=== PATIENT | female | born 1990 | race Caucasian/White ===

== ENCOUNTER 2016-08-09 01:39 | Emergency (ER) | payer BC ==
[~2016-08-09] VITALS: Ht 177.8 cm; Wt 85.0 kg
[2016-08-09 01:47] VITALS: Ht 177.8 cm; Wt 85.0 kg
[2016-08-09] MEDS ORDERED: NPH10OT RIGHT EAR (06:09)
[2016-08-09] MEDS ORDERED: AZIT250T94 PO (06:09)
[2016-08-09 06:17] VITALS: BP 111/76; PULSE 90; RESP 16
--- NOTE | 2016-08-09 08:19 | ERD ---
ER Documentation Chief Complaint Date/Time DATE: 08/09/16 TIME: 08:18 Chief Complaint right ear pain x 1 day HPI Patient is a 26-year-old female with previous ear infections and bipolar disorder who presents with ear infection. She says that she started with pressure yesterday and has 7 out of 10 pain. She said that it was pulsating. It is right-sided. She had a fever of 100 as well. She tried Mucinex DM and Tylenol. She has an allergy to penicillin and usually gets Zithromax for her ear infections. She does not currently have a primary doctor. ROS All systems reviewed and are negative except as per history of present illness. Medications Home Meds Active Scripts Neomycin/Polymyxin/Hydrocort* (Cortisporin* Otic) 10 Ml Susp, 4 DROP RIGHT EAR QID for 7 Days, EA Prov:ELLI LEWIS MD 08/09/16 Azithromycin* (Zithromax*) 250 Mg Tablet, 250 MG PO .ZPACK DIRECTED, #6 TAB TAKE 500 MG (2 TABS) THE FIRST DAY THEN 250 MG (1 TAB) DAYS 2-5 Prov:ELLI LEWIS MD 08/09/16 Allergies Allergies: Coded Allergies: Penicillins (Verified Allergy, Unknown, 08/09/16) PMhx/Soc History of Surgery: Yes (appendectomy) Anesthesia Reaction: No Hx Neurological Disorder: No Hx Respiratory Disorders: No Hx Cardiac Disorders: No Hx Miscellaneous Medical Probl: No Hx Alcohol Use: No Hx Substance Use: No Hx Tobacco Use: No Smoking Status: Never smoker FmHx Family History: diabetes Physical Exam Vitals Vital Signs Date Time Temp Pulse Resp B/P Pulse Ox O2 Delivery O2 Flow Rate FiO2 08/09/16 06:17 90 16 111/76 97 Room Air 08/09/16 01:47 97.8 99 20 129/84 100 Physical Exam Const: No acute distress Head: Atraumatic Eyes: Normal Conjunctiva ENT: Bulging right tympanic membrane without erythema Neck: Full range of motion..~ No meningismus. Resp: Clear to auscultation bilaterally Cardio: Regular rate and rhythm, no murmurs Abd: Soft, non tender, non distended. Normal bowel sounds Skin: No petechiae or rashes Back: No midline or flank tenderness Ext: No cyanosis, or edema Neur: Awake and alert Psych: Normal Mood and Affect Procedures/MDM Patient is a 26-year-old female presents with what appears to be a right-sided ear infection. She definitely has fluid and possibly pus behind the right ear. I will treat her with 5 days of Zithromax. She can follow-up with a primary doctor the local clinics that she does not currently have a primary doctor. She is otherwise well-appearing and I believe outpatient management is appropriate. She can return sooner for any worsening symptoms. Departure Diagnosis: Primary Impression: Otitis media Otitis media type: unspecified Laterality: right Chronicity: unspecified Qualified Code: H66.91 - Right otitis media, unspecified chronicity, unspecified otitis media type Condition: Fair Patient Instructions: Otitis Media, Abx Tx (Adult) Referrals: [facility] YOU HAVE RECEIVED A MEDICAL SCREENING EXAM AND THE RESULTS INDICATE THAT YOU DO NOT HAVE A CONDITION THAT REQUIRES URGENT TREATMENT IN THE EMERGENCY DEPARTMENT. FURTHER EVALUATION AND TREATMENT OF YOUR CONDITION CAN WAIT UNTIL YOU ARE SEEN IN YOUR DOCTORS OFFICE WITHIN THE NEXT 1-2 DAYS. IT IS YOUR RESPONSIBILITY TO MAKE AN APPOINTMENT FOR FOLOW-UP CARE. IF YOU HAVE A PRIMARY DOCTOR --you should call your primary doctor and schedule an appointment IF YOU DO NOT HAVE A PRIMARY DOCTOR YOU CAN CALL OUR PHYSICIAN REFERRAL HOTLINE AT IF YOU CAN NOT AFFORD TO SEE A PHYSICIAN YOU CAN CHOSE FROM THE FOLLOWING [facility] [address] [facility]. [facility] [address] [facility] [facility] [address] [facility] [facility] [address] [facility] [facility] [address] [facility]. [facility]. [address] Additional Instructions: Call your primary care doctor TOMORROW for an appointment during the next 1-2 days.See the doctor sooner or return here if your condition worsens before your appointment time. ELLI LEWIS MD Aug 09, 2016 08:19
== END 2016-08-09 06:18 | disposition home or self-care (01) ==
LOC: FTE 01:39
DX: H66.91 Otitis media, unspecified, right ear (principal)
CPT/HCPCS: 99283

== ENCOUNTER 2016-10-21 04:33 | Emergency (ER) | payer BC ==
[~2016-10-21] VITALS: Ht 167.6 cm; Wt 85.0 kg
[~2016-10-21 04:33] MED LIST: AZIT250T94 PO; NPH10OT RIGHT EAR
[2016-10-21 04:37] VITALS: Ht 167.6 cm; Wt 85.0 kg
[2016-10-21] MEDS ORDERED: ONDANSETRON (ODT) 4 MG TAB ODT STA (04:50)
[2016-10-21 04:57] LABS: URINE BLOOD (Dip) POC 2+ (NEGATIVE)
[2016-10-21] MEDS ORDERED: IBUPROFEN 600 MG TAB PO ONE (05:00)
[2016-10-21] MEDS ORDERED: HYDROCODONE/APAP (5/325) TAB PO ONE (05:00)
[2016-10-21] MEDS ORDERED: KETOROLAC 60 MG INJ IM STA (05:01)
[2016-10-21 06:30] LABS: ADD UMIC YES; URINE BILIRUBIN (Dip) NEGATIVE (NEGATIVE); URINE BLOOD (Dip) 3+ (NEGATIVE); URINE COLOR LT. YELLOW (YELLOW); URINE GLUCOSE (Dip) NEGATIVE (NEGATIVE); URINE KETONES (Dip) NEGATIVE (NEGATIVE); URINE LEUKOCYTE ESTERASE (Dip) NEGATIVE (NEGATIVE); URINE NITRITE (Dip) NEGATIVE (NEGATIVE); URINE TOTAL PROTEIN (Dip) NEGATIVE (NEGATIVE); URINE UROBILINOGEN (Dip) 0.2 E.U./dL (0.1-1.0)
[2016-10-21 07:03] LABS: URINE RBCS 0-2 /HPF (0)
--- NOTE | 2016-10-21 07:03 | ERD ---
ER Documentation Chief Complaint Date/Time DATE: 10/21/16 TIME: 07:01 Chief Complaint Flank pain x4 days HPI Patient is a 26-year-old female who presents with sudden onset, intermittent, moderate to severe bilateral flank pain for 4 days. She reports waking up this morning with severe pain on bilateral flanks radiating to the lower abdomen. She denies fevers, leg weakness or numbness, hematuria, dysuria. She is currently menstruating and has been spotting dark blood. She denies vaginal discharge. She does report that she takes longer to urinate than usual. No increased frequency. No vomiting, diarrhea, constipation. ROS All systems reviewed and are negative except as per history of present illness. Medications Home Meds Active Scripts Acetaminophen* (Acephen*) 650 Mg Supp, 650 MG TN Q4H Y for PAIN, #30 SUPP Prov:DERIK SAVAGE MD 10/21/16 Cyclobenzaprine Hcl* (Cyclobenzaprine Hcl*) 10 Mg Tablet, 10 MG PO TID, #21 TAB Prov:DERIK SAVAGE MD 10/21/16 Neomycin/Polymyxin/Hydrocort* (Cortisporin* Otic) 10 Ml Susp, 4 DROP RIGHT EAR QID for 7 Days, EA Prov:ELLI LEWIS MD 08/09/16 Azithromycin* (Zithromax*) 250 Mg Tablet, 250 MG PO .ZPACK DIRECTED, #6 TAB TAKE 500 MG (2 TABS) THE FIRST DAY THEN 250 MG (1 TAB) DAYS 2-5 Prov:ELLI LEWIS MD 08/09/16 Allergies Allergies: Coded Allergies: Penicillins (Verified Allergy, Unknown, 08/09/16) PMhx/Soc Past medical history: Bipolar disorder, ITP, postural hypotension Past surgical history: Appendectomy Social history: Denies tobacco, alcohol or illicit drugs History of Surgery: Yes (appendectomy) Anesthesia Reaction: No Hx Neurological Disorder: No Hx Respiratory Disorders: No Hx Cardiac Disorders: No Hx Miscellaneous Medical Probl: Yes (GERD) Hx Alcohol Use: No Hx Substance Use: No Hx Tobacco Use: No Smoking Status: Never smoker FmHx Multiple family members have history of kidney stones. Family History: No coronary disease, No diabetes Physical Exam Vitals Vital Signs Date Time Temp Pulse Resp B/P Pulse Ox O2 Delivery O2 Flow Rate FiO2 10/21/16 09:40 97.0 69 18 114/71 98 Room Air 10/21/16 06:30 98.4 78 18 120/69 98 Room Air 10/21/16 04:37 98.4 82 18 122/77 98 Physical Exam Const: Alert, no acute distress Head: Atraumatic Eyes: Normal Conjunctiva, no pallor, no icterus ENT: Normal External Ears, Nose and Mouth. Moist mucous membranes Neck: Full range of motion..~ No meningismus. Resp: Clear to auscultation bilaterally, no wheezes, no rales Cardio: Regular rate and rhythm, no murmurs Abd: Soft, mild suprapubic tenderness, no guarding, no rebound, non distended. Normal bowel sounds Skin: No petechiae or rashes Back: No midline tenderness, equivocal left CVA tenderness, mild left paraspinal muscle tenderness Ext: No cyanosis, or edema Neur: Awake and alert, cranial nerves II through XII intact bilaterally, patient moves and feels 4 extremities appropriately. Psych: Normal Mood and Affect Result Diagram: 10/21/16 0740 10/21/16 0740 Results 24 hrs Laboratory Tests Test 10/21/16 04:57 10/21/16 05:00 10/21/16 07:40 Bedside Urine pH (LAB) 7.0 Bedside Urine Protein (LAB) Negative Bedside Urine Glucose (UA) Negative Bedside Urine Ketones (LAB) Negative Bedside Urine Blood 2+ Bedside Urine Nitrite (LAB) Negative Bedside Urine Leukocyte Esterase (L Negative Urine Color LT. YELLOW Urine Clarity CLEAR Urine pH 6.0 Urine Specific Epes 1.015 Urine Ketones NEGATIVE Urine Nitrite NEGATIVE Urine Bilirubin NEGATIVE Urine Urobilinogen 0.2 E.U./dL Urine Leukocyte Esterase NEGATIVE Urine Microscopic RBC 0-2/HPF Urine Microscopic WBC 2-5/HPF Urine Epithelial Cells FEW Urine Bacteria FEW Urine Mucus FEW Urine Hemoglobin 3+ Urine Glucose NEGATIVE% Urine Total Protein NEGATIVE White Blood Count 8.610^3/ul Red Blood Count 4.5510^6/ul Hemoglobin 14.9g/dl Hematocrit 42.2% Mean Corpuscular Volume 92.7fl Mean Corpuscular Hemoglobin 32.7pg Mean Corpuscular Hemoglobin Concent 35.3g/dl Red Cell Distribution Width 11.2% Platelet Count 30153^3/UL Mean Platelet Volume 8.7fl Neutrophils % 57.1% Lymphocytes % 35.3% Monocytes % 6.9% Eosinophils % 0.1% Basophils % 0.3% Nucleated Red Blood Cells % 0.0/100WBC Neutrophils # 4.910^3/ul Lymphocytes # 3.010^3/ul Monocytes # 0.610^3/ul Eosinophils # 0.010^3/ul Basophils # 0.010^3/ul Nucleated Red Blood Cells # 0.010^3/ul Sodium Level 142mmol/L Potassium Level 4.6mmol/L Chloride Level 105mmol/L Carbon Dioxide Level 26mmol/L Anion Gap 16 Blood Urea Nitrogen 11mg/dl Creatinine 0.77mg/dl Glucose Level 93mg/dl Calcium Level 9.3mg/dl Total Bilirubin 0.1mg/dl Direct Bilirubin 0.00mg/dl Indirect Bilirubin 0.1mg/dl Aspartate Amino Transf (AST/SGOT) 27IU/L Alanine Aminotransferase (ALT/SGPT) 57IU/L Alkaline Phosphatase 82IU/L Creatine Kinase 39IU/L Total Protein 7.1g/dl Albumin 3.8g/dl Globulin 3.30g/dl Albumin/Globulin Ratio 1.15 Lipase 251U/L Current Medications Medications (Trade) Dose Ordered Sig/Rahul Route PRN Reason Start Time Stop Time Status Last Admin Dose Admin Ondansetron HCl (Zofran Odt) 4 mg ONCE STAT ODT 10/21/16 04:50 10/21/16 04:51 DC 10/21/16 05:07 Ibuprofen (Motrin) 600 mg ONCE ONCE PO 10/21/16 05:00 10/21/16 05:01 DC 10/21/16 05:08 Acetaminophen/ Hydrocodone Bitart ([place] (5/325)) 1 tab ONCE ONCE PO 10/21/16 05:00 10/21/16 05:01 DC 10/21/16 05:08 Ketorolac Tromethamine (Toradol) 60 mg ONCE STAT IM 10/21/16 05:01 10/21/16 05:02 DC 10/21/16 05:07 Cyclobenzaprine HCl (Flexeril) 10 mg ONCE ONCE PO 10/21/16 08:30 10/21/16 08:31 DC 10/21/16 08:20 Tramadol HCl (Ultram) 50 mg ONCE ONCE PO 10/21/16 09:30 10/21/16 09:31 DC 10/21/16 09:39 Procedures/MDM MDM: Patient is a 26-year-old female who presents with bilateral back pain radiating to the abdomen. She has a fairly unremarkable CT scan, except for a small gallstone. There is no right upper quadrant tenderness or signs of cholecystitis. There is no evidence for UTI or kidney stone. Labs are otherwise unremarkable. Her exam is suggestive of musculoskeletal back pain. I have prescribed her Flexeril and Tylenol, and have advised her to follow-up closely with your PMD if her symptoms are not improving, and to return to the ER for fever, severe pain, vomiting or other concerns. Departure Diagnosis: Primary Impression: Musculoskeletal back pain Additional Impression: Cholelithiasis Cholelithiasis location: gallbladder Cholecystitis presence: without cholecystitis Biliary obstruction: without biliary obstruction Qualified Code : K80.20 - Calculus of gallbladder without cholecystitis without obstruction Condition: DERIK Hoover MD October 21, 2016 07:03
[2016-10-21 07:04] LABS: BACTERIA,URINE FEW; MUCUS,URINE FEW
--- NOTE | 2016-10-21 07:19 | RADRPT ---
PROCEDURE: CT ABDOMEN/PELVIS WITHOUT CONTRAST CLINICAL INDICATION: 26-year-old female with left flank pain. TECHNIQUE: The study was performed utilizing a GE Direct Flow [employer]ed VCT 64-slice CT scanner. Direct axia l sections were obtained through the abdomen and pelvis without the use of intravenous contrast mate rial. Sagittal and coronal reformations were obtained. One or more of the following dose reduction t echniques were utilized: automated exposure control, adjustment of the mA and/or kV according to pat ient's size or use of iterative reconstruction technique. The images were reviewed on a PACS workst atgoOutMap. CTD/vol = 14.1 mGy; Total Exam DLP = 835.0 mGy-cm. COMPARISON: None. FINDINGS: The lung bases are unremarkable. There is no evidence for significant pleural effusion. The liver has a normal size and contour without focal areas of abnormal density. No intrahepatic nor extrahepa tic biliary ductal dilatation is seen. The gallbladder contains a small cholesterol stones seen best on axial image 3-72 without significant wall thickening or pericholecystic fluid. The pancreas is w ithout areas of abnormal attenuation. The spleen is identified and has a normal size without abnorm al density. The adrenal glands are unremarkable. The kidneys are without abnormal density. No hydrou reteronephrosis nor nephroureterolithiasis is evident. The urinary bladder is decompressed. There is [id number] retained stool throughout the colon without gross bowel obstruction. Multiple jonny gical clips are seen within the left lower quadrant region from prior appendectomy. The uterus is a nteflexed. It pelvic free fluid. There is a contraceptive diaphragm within the distal vaginal region covering the external orifice of the cervix. The aortoiliac vessels are without aneurysmal di latation. The osseous structures are intact. IMPRESSION: 1. Gallstone. 2. No CT evidence for obstructive uropathy or renal calculi. 3. Retained stool without gross bowel obstruction. 4. Status post appendectomy. 5. Contraceptive diaphragm in place. .Faraz Herron MD, Date Time Electronically viewed and signed by .Faraz Herron MD, MD on 10/21/2016 07:18 .M/
[2016-10-21 08:13] LABS: ADD SCAN DIFF NO
[2016-10-21 08:19] LABS: BASOPHILS % 0.3 % (0.0-2.0); EOSINOPHILS % 0.1 % (0.0-7.0); HEMATOCRIT 42.2 % (37.0-47.0); HEMOGLOBIN 14.9 g/dl (12.0-16.0); LYMPHOCYTES % 35.3 % (15.0-51.0); MEAN CORPUSCULAR HEMOGLOBIN 32.7 pg (29.0-33.0); MEAN CORPUSCULAR HGB CONC 35.3 g/dl (32.0-37.0); MEAN CORPUSCULAR VOLUME 92.7 fl (82.0-101.0); MEAN PLATELET VOLUME 8.7 fl (7.4-10.4); MONOCYTE # 0.6 10^3/ul (0.3-0.9); MONOCYTES % 6.9 % (0.0-11.0); NEUTROPHIL # 4.9 10^3/ul (1.6-7.5); NEUTROPHILS % 57.1 % (39.0-77.0); PLATELET COUNT 131 10^3/UL (140-415); RED BLOOD COUNT 4.55 10^6/ul (4.20-5.40); RED CELL DISTRIBUTION WIDTH 11.2 % (11.5-14.5); WHITE BLOOD COUNT 8.6 10^3/ul (4.8-10.8)
[2016-10-21] MEDS ORDERED: CYCLOBENZAPRINE 10 MG TAB PO ONE (08:30)
[2016-10-21 08:36] LABS: ALBUMIN 3.8 g/dl (3.3-4.9)
[2016-10-21 08:37] LABS: POTASSIUM 4.6 mmol/L (3.5-5.1)
[2016-10-21 08:39] LABS: BILIRUBIN,INDIRECT 0.1 mg/dl (0-1.1); BILIRUBIN,TOTAL 0.1 mg/dl (0.2-1.3); CREATININE 0.77 mg/dl (0.44-1.00)
[2016-10-21 08:40] LABS: ALBUMIN/GLOBULIN RATIO 1.15; CALCIUM 9.3 mg/dl (8.4-10.2); TOTAL PROTEIN 7.1 g/dl (6.1-8.1)
[2016-10-21] MEDS ORDERED: TYL650R PR (08:43)
[2016-10-21] MEDS ORDERED: CYCL-319 PO (08:43)
[2016-10-21] MEDS ORDERED: traMADol 50 MG TAB PO ONE (09:30)
[2016-10-21 09:40] VITALS: BP 114/71; PULSE 69; RESP 18; TEMP 97
== END 2016-10-21 08:42 | disposition home or self-care (01) ==
LOC: E/R 04:33
DX: M54.9 Dorsalgia, unspecified (principal); K80.20 Calculus of gallbladder without cholecystitis without obstruction
CPT/HCPCS: 74176; 80053; 81001; 82550; 83690; 85025; J1885; 81003; 96372

== ENCOUNTER 2016-10-25 04:35 | Emergency (ER) | payer BC ==
[~2016-10-25] VITALS: Ht 167.6 cm; Wt 85.0 kg
[~2016-10-25 04:35] MED LIST changes: +CYCL-319 PO; +TYL650R PR
[2016-10-25 04:39] VITALS: Ht 167.6 cm; Wt 85.0 kg
--- NOTE | 2016-10-25 04:53 | ERD ---
ER Documentation Chief Complaint Date/Time DATE: 10/25/16 TIME: 04:53 Chief Complaint both flank pain, painful urination PANTERA Is a 26-year-old female who presents with gradual onset, constant, moderate throbbing pain in the right low back. She was seen in the ER 4 days ago, and at that time she had had symptoms already for 4 days. Her workup at that time revealed a small gallstone, constipation, but no evidence of renal stone or infection. Her CT scan did not reveal significant intra-abdominal pathology. She was discharged with Flexeril, and states she has been taking 2-3 times a day. She states that her pain got better, but now has gotten worse again for the last 2 days. She states that she had 2 episodes of vomiting yesterday. She denies fever. She states she has had normal bowel movements. She states that she is now having worse dysuria. She denies vaginal discharge. She has an appointment with her PMD in 4 days. ROS All systems reviewed and are negative except as per history of present illness. Medications Home Meds Reported Medications Lactobacillus Combination No.4 (Probiotic) 1 Each Capsule, PO DAILY, CAP 10/25/16 Bismuth Subsalicylate* (Pepto-Bismol*) 262 Mg/15 Ml Oral.susp, 30 ML PO, ML 10/25/16 Acetaminophen/Aspirin/Caffeine* (Excedrin*) 1 Tab Tab, 1 TAB PO, TAB 10/25/16 Bupropion Hcl* (Wellbutrin XL*) 300 Mg Tab.sr.24h, 300 MG PO DAILY, TAB.SA 10/25/16 Lurasidone Hcl (LATUDA) 120 Mg Tablet, 120 MG PO DAILY, #30 TAB 10/25/16 Levetiracetam* (Keppra*) 500 Mg Tablet, 500 MG PO DAILY, TAB 10/25/16 Discontinued Scripts Acetaminophen* (Acephen*) 650 Mg Supp, 650 MG MT Q4H Y for PAIN, #30 SUPP Prov:DERIK SAVAGE MD 10/21/16 Cyclobenzaprine Hcl* (Cyclobenzaprine Hcl*) 10 Mg Tablet, 10 MG PO TID, #21 TAB Prov:DERIK SAVAGE MD 10/21/16 Neomycin/Polymyxin/Hydrocort* (Cortisporin* Otic) 10 Ml Susp, 4 DROP RIGHT EAR QID for 7 Days, EA Prov:ELLI LEWIS MD 08/09/16 Azithromycin* (Zithromax*) 250 Mg Tablet, 250 MG PO .ZPACK DIRECTED, #6 TAB TAKE 500 MG (2 TABS) THE FIRST DAY THEN 250 MG (1 TAB) DAYS 2-5 Prov:ELLI LEWIS MD 08/09/16 Allergies Allergies: Coded Allergies: Penicillins (Unverified Allergy, Unknown, 10/25/16) PMhx/Soc Past medical history: Bipolar disorder, cholelithiasis, ITP, postural hypotension Past surgical history: Appendectomy Social history: Denies tobacco or alcohol History of Surgery: Yes (appendectomy) Anesthesia Reaction: No Hx Neurological Disorder: No Hx Respiratory Disorders: No Hx Cardiac Disorders: No Hx Miscellaneous Medical Probl: Yes (GERD) Hx Alcohol Use: No Hx Substance Use: No Hx Tobacco Use: No Smoking Status: Never smoker FmHx Family History: No coronary disease, No diabetes Physical Exam Vitals Vital Signs Date Time Temp Pulse Resp B/P Pulse Ox O2 Delivery O2 Flow Rate FiO2 10/25/16 04:39 98.4 89 20 124/80 98 Physical Exam Const: Alert, no acute distress Head: Atraumatic Eyes: Normal Conjunctiva, no pallor, no icterus ENT: Normal External Ears, Nose and Mouth. Mucous membranes moist Neck: Full range of motion..~ No meningismus. Resp: Clear to auscultation bilaterally, no wheezes, rales Cardio: Regular rate and rhythm, no murmurs Abd: Soft, non tender, no rebound, no guarding, non distended. Normal bowel sounds Skin: No petechiae or rashes Back: No midline tenderness, no CVA tenderness. Right lumbar paraspinal muscle tenderness and spasm Ext: No cyanosis, or edema Neur: Awake and alert, cranial nerves II through XII intact bilaterally, strength and sensation full in 4 extremities, normal gait Psych: Normal Mood and Affect Results 24 hrs Laboratory Tests Test 10/25/16 05:01 Bedside Urine pH (LAB) 7.0 Bedside Urine Protein (LAB) Negative Bedside Urine Glucose (UA) Negative Bedside Urine Ketones (LAB) Negative Bedside Urine Blood 2+ Bedside Urine Nitrite (LAB) Negative Bedside Urine Leukocyte Esterase (L Negative Current Medications Medications (Trade) Dose Ordered Sig/Rahul Route PRN Reason Start Time Stop Time Status Last Admin Dose Admin Acetaminophen/ Hydrocodone Bitart ([place] (5/325)) 1 tab ONCE ONCE PO 10/25/16 05:00 10/25/16 05:01 DC 10/25/16 04:59 Procedures/MDM MDM: Patient is a 26-year-old female with greater than 1 week of right lumbar paraspinal pain. She has pain that is reproducible with palpation of the paraspinal muscles. She was seen 4 days ago, and had extensive workup including CT scan that did not demonstrate significant pathology. She has been taking Flexeril, and initially had some improvement of symptoms, but now states that her pain is returning. She has a benign abdominal exam, no neurologic symptoms or deficits, and UA shows microscopic hematuria but no signs of infection. The cause of microscopic hematuria is not clear at this time. I have low suspicion for kidney stone. Her exam is consistent with muscle strain or spasm. The patient has follow-up scheduled with PMD in 4 days. Advised her to use a heating pad, and do gentle stretching. Advised on return precautions for fever, severe pain or other symptoms. Departure Diagnosis: Primary Impression: Low back pain Chronicity: unspecified Back pain laterality: right Sciatica presence: without sciatica Qualified Code: M54.5 - Right-sided low back pain without sciatica, unspecified chronicity Additional Impression: Microscopic hematuria Condition: Stable DERIK SAVAGE MD October 25, 2016 04:53
[2016-10-25 05:00] LABS: URINE BLOOD (Dip) POC 2+ (NEGATIVE)
[2016-10-25] MEDS ORDERED: HYDROCODONE/APAP (5/325) TAB PO ONE (05:00)
[2016-10-25] MEDS ORDERED: LURA120T PO (05:26)
[2016-10-25] MEDS ORDERED: LEVE-5 PO (05:26)
[2016-10-25] MEDS ORDERED: BUPR300T48 PO (05:26)
[2016-10-25] MEDS ORDERED: BISM262O23 PO (05:26)
[2016-10-25] MEDS ORDERED: EXCED PO (05:26)
[2016-10-25] MEDS ORDERED: LACT1CAP49 PO (05:26)
== END 2016-10-25 05:41 | disposition home or self-care (01) ==
LOC: E/R 04:35
DX: M54.5 Low back pain (principal); R31.29 Other microscopic hematuria
CPT/HCPCS: 81003; 99283

== ENCOUNTER 2017-01-25 03:02 | Emergency (ER) | payer BC ==
[~2017-01-25] VITALS: Ht 162.6 cm; Wt 94.5 kg
[~2017-01-25 03:02] MED LIST changes: -AZIT250T94 PO; +BISM262O23 PO; +BUPR300T48 PO; -CYCL-319 PO; +EXCED PO; +LACT1CAP49 PO; +LEVE-5 PO; +LURA120T PO; -NPH10OT RIGHT EAR; -TYL650R PR
[2017-01-25 03:07] VITALS: Ht 162.6 cm; Wt 94.5 kg
--- NOTE | 2017-01-25 03:50 | ERD ---
ER Documentation Chief Complaint Date/Time DATE: 01/25/17 TIME: 03:48 Chief Complaint chest pain on and off x1 day, diarrhea/vomiting since 6 hours ago HPI 26-year-old female who presents emergency department for chest pain that is on and off for about a day, diarrhea, vomiting that started 6 hours ago. Stated that the pain is worse on movement. Denies headache, loss of consciousness, dizziness, blurry vision, changes in vision, photophobia, facial pain, ear pain, throat pain, difficulty swallowing, neck pain, shoulder pain, cough, hemoptysis, abdominal pain, back pain, loss of appetite, hematochezia, constipation, urinary symptoms, , the possibility of being , bladder and bowel incontinences, extremity weakness, trauma/injury/falls, extremity tenderness, numbness or tingling sensation, difficulty walking, recent travel, recent exposure to illness, recent antibiotic use in the last 3 months, fever, chills. LMP: Stated that she is on NuvaRing and does not have any periods. A0. Allergy: Penicillin. Reaction is hives. Past medical history of bipolar, depression, GERD, idiopathic thrombocytopenia. Surgery: Appendectomy. Medication: Latuda, Keppra, Wellbutrin Social: Student. Denies smoking, use of alcoholic beverages, use of illegal drugs. ROS All systems reviewed and are negative except as per history of present illness. Medications Home Meds Active Scripts Cyclobenzaprine Hcl* (Cyclobenzaprine Hcl*) 10 Mg Tablet, 10 MG PO Q12 Y for muscle pain, #15 TAB Prov:PASILABAN,BRUNILDAAR F 01/25/17 Sulfamethoxazole/Trimethoprim* (Bactrim Ds* Tablet) 1 Each Tablet, 1 TAB PO DAILY, #7 TAB Prov:PASILABAN,KLAR F 01/25/17 Reported Medications Lactobacillus Combination No.4 (Probiotic) 1 Each Capsule, PO DAILY, CAP 10/25/16 Bismuth Subsalicylate* (Pepto-Bismol*) 262 Mg/15 Ml Oral.susp, 30 ML PO, ML 10/25/16 Acetaminophen/Aspirin/Caffeine* (Excedrin*) 1 Tab Tab, 1 TAB PO, TAB 10/25/16 Bupropion Hcl* (Wellbutrin XL*) 300 Mg Tab.sr.24h, 300 MG PO DAILY, TAB.SA 10/25/16 Lurasidone Hcl (LATUDA) 120 Mg Tablet, 120 MG PO DAILY, #30 TAB 10/25/16 Levetiracetam* (Keppra*) 500 Mg Tablet, 500 MG PO DAILY, TAB 10/25/16 Allergies Allergies: Coded Allergies: Penicillins (Unverified Allergy, Unknown, 10/25/16) PMhx/Soc History of Surgery: Yes (appendectomy) Anesthesia Reaction: No Hx Neurological Disorder: No Hx Respiratory Disorders: No Hx Cardiac Disorders: No Hx Miscellaneous Medical Probl: Yes (GERD) Hx Alcohol Use: No Hx Substance Use: No Hx Tobacco Use: No Physical Exam Vitals Vital Signs Date Time Temp Pulse Resp B/P Pulse Ox O2 Delivery O2 Flow Rate FiO2 01/25/17 03:07 97.4 74 20 121/80 98 Physical Exam CONSTITUTIONAL: Well-appearing; well-nourished; in no apparent distress. HEAD: Normocephalic; atraumatic. EYES: Conjunctiva clear, sclera non-icteric, EOM intact. PERRL Ears: Hearing intact. EACs clear, TMs non-bulging, non-inflamed, translucent & mobile, ossicles normal appearance, No obstructions, no erythema, no discharges Nose: No obstructions. No polyps. No external lesions. Mucosa non-inflamed. No external lesions, septum and turbinates normal. No rhinorrhea. No discharges. Frontal sinus is non-tender to palpation. Maxillary sinus is non-tender to palpation. MOUTH: Moist mucous membranes, no lesion, no obstructions, no vesicles, no thrush, patent airway Throat: Uvula in midline. Right tonsil is +1 with no erythema, no exudate. Left tonsil is +1 with no erythema, no exudate. Tolerating secretions well. Good gag reflex. Patent airway. Neck: Supple, without lesions, bruits, or adenopathy. No mass. Thyroid non- enlarged and non-tender to palpation. CHEST: Symmetrical chest. Respirations even and not labored. No retractions noted. CARDIOVASCULAR: Normal S1, S2. RRR. No murmurs, gallops. RESPIRATORY: Normal chest excursion with respiration; breath sounds clear and equal bilaterally; no wheezes, rhonchi, or rales. Breathing even and unlabored. Speaking in clear, full, and complete sentences w/ ease. ABDOMEN: Normal bowel sounds normal. Soft, round, non-distended, non-guarding, no tenderness, no rebound, no organomegaly, no masses, no pulsating abdominal mass. No hernia. No peritoneal signs. : No CVA tenderness. BACK: Symmetrical shoulder. Spine is midline without deformity, tenderness. No evidence of trauma or deformity. PELVIS: Stable pelvis. No evidence of trauma or deformity. MUSCULOSKELETAL: Normal gait and station. No misalignment, asymmetry, crepitation, defects, tenderness, masses, effusions, decreased range of motion, instability, atrophy or abnormal strength or tone in the head, neck, spine, ribs , pelvis or extremities. No calf tenderness. Supraspinatus tenderness to the right upper and left upper back. Left shoulder pain on range of motion of the spine and shoulder. NEUROVASCULAR: Distal pulses are present. Pedal pulse are present, equal, and normal. Capillary refills are < 2 seconds. NEUROLOGIC: Alert and oriented x4. Speaks full and clear sentences. Cranial Nerves II-XII normal. Sensation to pain, touch, and proprioception normal. Grossly unremarkable. No neurologic deficits. Romberg test is negative. PSYCHOLOGICAL: The patients mood and manner are appropriate. No hallucinations , delusions. Not SI. Not HI. Has the capacity to decide for self SKIN: Normal for age and ethnicity; warm; dry; good turgor; no apparent lesions or exudates. No rashes, hives, discoloration. Intact. Results 24 hrs Laboratory Tests Test 01/25/17 04:00 01/25/17 04:12 Urine Color YELLOW Urine Clarity CLEAR Urine pH 5.0 Urine Specific [place] 1.020 Urine Ketones NEGATIVEmg/dL Urine Nitrite NEGATIVEmg/dL Urine Bilirubin NEGATIVEmg/dL Urine Urobilinogen NEGATIVEmg/dL Urine Leukocyte Esterase TRACELeu/ul Urine Microscopic RBC 3/HPF Urine Microscopic WBC 3/HPF Urine Squamous Epithelial Cells FEW/HPF Urine Bacteria FEW/HPF Urine Mucus FEW/HPF Urine Hemoglobin 2+mg/dL Urine Glucose NEGATIVEmg/dL Urine Total Protein NEGATIVEmg/dl Urine Opiates Screen Negative Urine Barbiturates Negative Urine Amphetamines Screen Negative Urine Benzodiazepines Screen Negative Urine Cocaine Screen Negative Urine Cannabinoids Negative Bedside Urine pH (LAB) 6.0 Bedside Urine Protein (LAB) Negative Bedside Urine Glucose (UA) Negative Bedside Urine Ketones (LAB) Negative Bedside Urine Blood 2+ Bedside Urine Nitrite (LAB) Negative Bedside Urine Leukocyte Esterase (L Negative Current Medications Medications (Trade) Dose Ordered Sig/Rahul Route PRN Reason Start Time Stop Time Status Last Admin Dose Admin Ondansetron HCl (Zofran Odt) 4 mg ONCE STAT ODT 01/25/17 03:58 01/25/17 03:59 DC 01/25/17 04:10 Procedures/MDM Examination: Please see physical examination. Disease process, medical treatment was explained to the patient and family member. They verbalized understanding and agreed with the diagnostic tests, medical treatment, and follow-up care. EKG: Normal sinus rhythm with a ventricular rate of 76 bpm. No evidence of acute myocardial infarction. No evidence of ischemia. POC urine : Negative. Urinalysis: Reviewed. Re-evaluation: Denies headache, dizziness, blurry vision, neck pain, shoulder pain, chest pain, back pain, abdominal pain, nausea, vomiting. No episode of emesis in the emergency department. Alert and oriented 4. Speaks full and clear sentences. Respirations even and unlabored. Lung sounds clear to auscultation. Active bowel sounds. There is no right upper/right lower/ epigastric/left upper/left lower abdominal tenderness and light and deep palpation. Negative on Rovsings sign. Negative Hingham sign. Able to jump 5 times without developing right-sided abdominal pain. No peritoneal signs. Ambulatory with steady gait. No neurovascular deficits. No neurological deficits. Consultation: None. Differential diagnosis: Acute myocardial infarction versus acute coronary syndrome versus anxiety versus pneumonia versus costochondritis versus muscle spasms versus gastroenteritis versus urinary tract infection Medical decision makin-year-old female who presents emergency department for chest pain that is on and off for about a day, diarrhea, vomiting that started 6 hours ago. Stated that the pain is worse on movement. Patient's complaint, patient's history about her complaint, my physical findings, diagnostic test results, my reevaluation are consistent with final diagnosis of chest pain, chest wall pain, anxiety, UTI, gastroenteritis, muscle spasm. Medications prescribed are the following: Bactrim. Flexeril. Zofran. Patient and family member are made aware of the side effects and adverse reactions of the medications prescribed. Instructed on when to seek emergent and medical attention in case allergic/anaphylactic reactions or severe side effects and or adverse reactions to medications. Patient and family member verbalized understanding. Patient instructed Instructed to follow-up with his PCP in 24-48 hours. Instructed to Call 911 for chest pain, shortness of breath. Advised to come back here in ED as soon as possible for severity of symptoms which includes but not limited to: any new symptoms; shortness of breath/difficulty of breathing; cardiovascular changes; severe gastrointestinal symptoms; signs and symptoms of bleeding and or infection; signs of compartment syndrome/neurovascular changes; neurological changes/deficits. Patient and family member verbalized understanding. Upon discharge, patient is alert and oriented x 4, speaks full and clear sentences, denies pain, has no neurological deficits, has no neurovascular deficits, difficulty of breathing. Breathing even and unlabored. Lung sounds are clear to auscultation. Not in distress. Appears comfortable. Ambulatory with steady gait. Appears satisfied with care provided here in ED. Departure Diagnosis: Primary Impression: Chest pain Additional Impressions: Chest wall pain Anxiety UTI (urinary tract infection) Gastroenteritis Muscle spasm Condition: Stable Additional Instructions: Instructed to follow-up with his PCP in 24-48 hours. Instructed to Call 911 for chest pain, shortness of breath. Advised to come back here in ED as soon as possible for severity of symptoms which includes but not limited to: any new symptoms; shortness of breath/difficulty of breathing; cardiovascular changes; severe gastrointestinal symptoms; signs and symptoms of bleeding and or infection; signs of compartment syndrome/neurovascular changes; neurological changes/deficits. Patient and family member verbalized understanding. GILBERTO AMAYA Jan 25, 2017 03:50
[2017-01-25] MEDS ORDERED: ONDANSETRON (ODT) 4 MG TAB ODT STA (03:58)
[2017-01-25 04:07] LABS: URINE BLOOD (Dip) POC 2+ (NEGATIVE)
[2017-01-25 05:11] LABS: ADD UMIC YES; UR ASCORBIC ACID NEGATIVE (NEGATIVE); UR BACTERIA FEW /HPF (NONE SEEN); UR BILIRUBIN (Dip) NEGATIVE (NEGATIVE); UR BLOOD (Dip) 2+ mg/dL (NEGATIVE); UR CLARITY CLEAR (CLEAR); UR COLOR YELLOW (YELLOW); UR GLUCOSE (Dip) NEGATIVE (NEGATIVE); UR KETONES (Dip) NEGATIVE (NEGATIVE); UR LEUKOCYTE ESTERASE (Dip) TRACE Leu/ul (NEGATIVE); UR MUCUS FEW /HPF (NONE SEEN); UR NITRITE (Dip) NEGATIVE (NEGATIVE); UR RBC 3 /HPF (0-5); UR SQUAMOUS EPITHELIAL CELL FEW /HPF (FEW); UR TOTAL PROTEIN (Dip) NEGATIVE (NEGATIVE); UR UROBILINOGEN (Dip) NEGATIVE (NEGATIVE)
[2017-01-25 05:19] LABS: BARBITURATES Negative (NEGATIVE); BENZODIAZEPINES Negative (NEGATIVE); CANNABINOIDS Negative (NEGATIVE); COCAINE Negative (NEGATIVE); OPIATES Negative (NEGATIVE)
[2017-01-25] MEDS ORDERED: SULF1TAB31 PO (05:36)
[2017-01-25] MEDS ORDERED: CYCL-319 PO (05:37)
== END 2017-01-25 05:49 | disposition home or self-care (01) ==
LOC: FTE 03:02
DX: R07.89 Other chest pain (principal); F41.9 Anxiety disorder, unspecified; N39.0 Urinary tract infection, site not specified; K52.9 Noninfective gastroenteritis and colitis, unspecified; M62.838 Other muscle spasm
CPT/HCPCS: 80307; 81001; 81003; 99284

== ENCOUNTER 2017-01-30 08:03 | Emergency (ER) | payer BC ==
[~2017-01-30] VITALS: Wt 84.0 kg
[~2017-01-30 08:03] MED LIST changes: +CYCL-319 PO; +SULF1TAB31 PO
[2017-01-30] MEDS ORDERED: ONDANSETRON 4 MG INJ IV STA ×2 (08:30→10:02)
[2017-01-30] MEDS ORDERED: morphine 4 MG/ML VIAL IV STA ×2 (08:30→10:02)
[2017-01-30] MEDS ORDERED: SOD CHLORIDE 0.9% 1,000 ML IV STA (08:30)
--- NOTE | 2017-01-30 09:14 | ERD ---
ER Documentation Chief Complaint Date/Time DATE: 01/30/17 TIME: 09:11 Chief Complaint n/v, pelvic pain - currently being tx for uti HPI This is a 26-year-old female presenting to emergency department with nausea, vomiting and pelvic pain x 5 days. Patient states that she was here 5 days ago and was started on antibiotics for urinary tract infection. Patient continues to have lower abdominal pain and upper abdominal pain. Pain in right upper quadrant abdomen radiates to right flank. No dysuria, hematuria, urinary frequency or urgency. Patient has had multiple episodes of nonbloody nonbilious emesis today. No diarrhea. Patient is unsure of her last bowel movement. Last menstrual period was several months ago and patient states she is on NuvaRing which helps her menstrual cycle. ROS All systems reviewed and are negative except as per history of present illness. Medications Home Meds Active Scripts Ondansetron Hcl* (Zofran*) 4 Mg Tablet, 4 MG PO Q6H for NAUSEA AND/OR VOMITING, #15 TAB Prov:TABBY GRAVES NP 01/30/17 Hydrocodone/Acetaminophen ([place] 5-325 Tablet) 1 Each Tablet, 1 TAB PO Q6H Y for PAIN, #7 TAB Prov:TABBY GRAVES NP 01/30/17 Ibuprofen* (Motrin*) 600 Mg Tab, 600 MG PO Q6, #15 TAB Prov:TABBY GRAVES NP 01/30/17 Docusate Sodium* (Colace*) 100 Mg Capsule, 100 MG PO BID, #15 CAP Prov:TABBY GRAVES NP 01/30/17 Polyethylene Glycol* (Miralax*) 17 Gm Powd.pack, 17 GM PO DAILY, #7 Prov:TABBY GRAVES NP 01/30/17 Cyclobenzaprine Hcl* (Cyclobenzaprine Hcl*) 10 Mg Tablet, 10 MG PO Q12 Y for muscle pain, #15 TAB Prov:GILBERTO AMAYA 01/25/17 Sulfamethoxazole/Trimethoprim* (Bactrim Ds* Tablet) 1 Each Tablet, 1 TAB PO DAILY, #7 TAB Prov:JERRIILAGILBERTO MOSER 01/25/17 Reported Medications Lactobacillus Combination No.4 (Probiotic) 1 Each Capsule, PO DAILY, CAP 10/25/16 Bismuth Subsalicylate* (Pepto-Bismol*) 262 Mg/15 Ml Oral.susp, 30 ML PO, ML 10/25/16 Acetaminophen/Aspirin/Caffeine* (Excedrin*) 1 Tab Tab, 1 TAB PO, TAB 10/25/16 Bupropion Hcl* (Wellbutrin XL*) 300 Mg Tab.sr.24h, 300 MG PO DAILY, TAB.SA 10/25/16 Lurasidone Hcl (LATUDA) 120 Mg Tablet, 120 MG PO DAILY, #30 TAB 10/25/16 Levetiracetam* (Keppra*) 500 Mg Tablet, 500 MG PO DAILY, TAB 10/25/16 Allergies Allergies: Coded Allergies: Penicillins (Unverified Allergy, Unknown, 01/30/17) PMhx/Soc History of Surgery: Yes (Appendectomy) Anesthesia Reaction: No Hx Neurological Disorder: No Hx Respiratory Disorders: No Hx Cardiac Disorders: No Hx Miscellaneous Medical Probl: Yes (GERD) Hx Alcohol Use: No Hx Substance Use: No Hx Tobacco Use: No Smoking Status: Never smoker Physical Exam Vitals Vital Signs Date Time Temp Pulse Resp B/P Pulse Ox O2 Delivery O2 Flow Rate FiO2 01/30/17 13:10 97.8 84 20 124/77 100 Room Air 01/30/17 11:13 81 20 118/76 100 Room Air 01/30/17 08:05 97.3 89 20 130/82 97 Physical Exam Const: Alert Head: Atraumatic Eyes: Normal Conjunctiva ENT: Normal External Ears, Nose and Mouth. Neck: Full range of motion..~ No meningismus. Resp: Clear to auscultation bilaterally Cardio: Regular rate and rhythm, no murmurs Abd: Soft, non tender, non distended. Normal bowel sounds negative for Donaldson sign, negative for McBurney point tenderness Skin: No petechiae or rashes Back: No midline or flank tenderness. No CVA tenderness Ext: No cyanosis, or edema Neur: Awake and alert Psych: Normal Mood and Affect Result Diagram: 01/30/17 0850 01/30/17 0850 Results 24 hrs Laboratory Tests Test 01/30/17 08:50 White Blood Count 7.510^3/ul Red Blood Count 4.6810^6/ul Hemoglobin 15.3g/dl Hematocrit 42.6% Mean Corpuscular Volume 91.0fl Mean Corpuscular Hemoglobin 32.7pg Mean Corpuscular Hemoglobin Concent 35.9g/dl Red Cell Distribution Width 11.3% Platelet Count 03874^3/UL Mean Platelet Volume 9.1fl Neutrophils % 62.7% Lymphocytes % 31.3% Monocytes % 5.6% Eosinophils % 0.0% Basophils % 0.3% Nucleated Red Blood Cells % 0.0/100WBC Neutrophils # (Manual) 510^3/ul Lymphocytes # 2.310^3/ul Monocytes # 0.410^3/ul Eosinophils # 0.010^3/ul Basophils # 0.010^3/ul Nucleated Red Blood Cells # 0.010^3/ul Urine Color YELLOW Urine Clarity CLEAR Urine pH 5.0 Urine Specific [place] 1.028 Urine Ketones TRACEmg/dL Urine Nitrite NEGATIVEmg/dL Urine Bilirubin NEGATIVEmg/dL Urine Urobilinogen NEGATIVEmg/dL Urine Leukocyte Esterase NEGATIVELeu/ul Urine Microscopic RBC 1/HPF Urine Microscopic WBC 1/HPF Urine Mucus FEW/HPF Urine Hemoglobin 1+mg/dL Urine Glucose NEGATIVEmg/dL Urine Total Protein NEGATIVEmg/dl Sodium Level 142mmol/L Potassium Level 4.0mmol/L Chloride Level 100mmol/L Carbon Dioxide Level 26mmol/L Anion Gap 20 Blood Urea Nitrogen 10mg/dl Creatinine 0.86mg/dl Glucose Level 93mg/dl Calcium Level 9.5mg/dl Total Bilirubin 0.1mg/dl Direct Bilirubin 0.00mg/dl Indirect Bilirubin 0.1mg/dl Aspartate Amino Transf (AST/SGOT) 19IU/L Alanine Aminotransferase (ALT/SGPT) 41IU/L Alkaline Phosphatase 84IU/L Total Protein 7.4g/dl Albumin 4.0g/dl Globulin 3.40g/dl Albumin/Globulin Ratio 1.17 Lipase 164U/L Serum HCG, Qualitative NEGATIVE Current Medications Medications (Trade) Dose Ordered Sig/Rahul Route PRN Reason Start Time Stop Time Status Last Admin Dose Admin Sodium Chloride (NS) 1,000 ml @ 1,000 mls/hr Q1H STAT IV 01/30/17 08:30 01/30/17 09:29 DC 01/30/17 08:55 Morphine Sulfate (morphine) 4 mg ONCE STAT IV 01/30/17 08:30 01/30/17 08:33 DC 01/30/17 08:56 Ondansetron HCl (Zofran Inj) 4 mg ONCE STAT IV 01/30/17 08:30 01/30/17 08:33 DC 01/30/17 08:55 Morphine Sulfate (morphine) 4 mg ONCE STAT IV 01/30/17 10:02 01/30/17 10:04 DC Ondansetron HCl (Zofran Inj) 4 mg ONCE STAT IV 01/30/17 10:02 01/30/17 10:04 DC Procedures/MDM [place] [address] Radiology Main Line: [phone] DIAGNOSTIC IMAGING REPORT Patient: EFFIE ANGEL : 1990 Age: 26 Sex: F MR #: [id number] DOS: 01/30/17829 Ordering MD: TABBY GRAVES NP Location: [facility] Room/Bed: PROCEDURE: Pelvic Ultrasound. CLINICAL INDICATION: Pelvic pain TECHNIQUE: Sonographic evaluation of the pelvis was performed utilizing transabdominal and transvaginal technique. Curved array transabdominal transducer technique was utilized as was an endovaginal probe. Images were reviewed on the high-resolution PACS workstation. COMPARISON: No prior studies are available for comparison. FINDINGS: The uterus is normal measuring 7.2 x 3.2 x 4.0 cm in dimension. No uterine masses are identified. The endometrium is thin and normal measuring 2.7 mm. Normal flow is identified in the bilateral ovaries. The right ovary is normal measuring 2.6 x 1.5 x 1 point a cm. The left ovary is normal measuring 2.9 x 1.7 x 1.4 cm in dimension. There are no adnexal masses. No free fluid is seen. IMPRESSION: 1. Unremarkable ultrasound of the pelvis. [place] [address] Radiology Main Line: [phone] DIAGNOSTIC IMAGING REPORT Patient: EFFIE ANGEL : 1990 Age: 26 Sex: F MR #: [id number] DOS: 01/30/17829 Ordering MD: TABBY GRAVES NP Location: [facility] Room/Bed: PROCEDURE: CT Abdomen and Pelvis without contrast CLINICAL INDICATION: Abdominal pain with nausea and vomiting TECHNIQUE: Transaxial images were obtained through the abdomen and pelvis on a multi-slice scanner without the intravenous contrast administration. No oral contrast had previously been given. Sagittal and coronal re-formations were subsequently reconstructed. One or more of the following dose reduction techniques were used: - Automated exposure control. - Adjustment of the mA and/or kV according to patient size. - Use of iterative reconstruction technique. Radiation dose: CTDIvol = 14.58 mGy; DLP = 884.03 mGy-cm. COMPARISON: 10/21/2016 FINDINGS: Lung bases: The visualized lung bases appear unremarkable. Liver: Normal in size and in attenuation. There is no focal lesion. Gallbladder: There is increasing cholelithiasis and the gallbladder wall now appears mildly thickened. Bile ducts: The intra and extrahepatic bile ducts are normal in caliber. Pancreas: Appears normal with no mass or inflammation evident. Spleen: The spleen is upper normal in size. Adrenals: Normal with no mass identified. Kidneys, ureters and bladder: The kidneys are normal in size and there is no mass, pathological calcification, or hydronephrosis evident. There is no perinephric stranding. The ureters are normal in caliber and no ureteroliths are identified. The bladder appears unremarkable. Reproductive organs: Unremarkable. A vaginal contraceptive ring is again evident. Stomach and bowel: The stomach and bowel appear unremarkable without evidence of bowel obstruction or inflammation. Appendix: There appears to been a previous appendectomy. Peritoneum: No free intraperitoneal fluid or air is identified. Aorta: Normal in caliber with no aneurysmal dilatation. IVC: Unremarkable. Lymph nodes: No pathologically enlarged nodes are identified. Osseous structures: The osseous elements appear intact. IMPRESSION: 1. Since the previous CT of 10/21/2016, there is increasing cholelithiasis and the gallbladder wall now appears thickened. Clinical correlation is indicated to exclude the possibility of cholecystitis. No bile duct dilatation is evident and the pancreas appears unremarkable. 2. No evidence of bowel obstruction or inflammation. Substantial stool is again seen in the colon. There again appears to been a previous appendectomy. 3. No evidence of urinary outflow obstruction or ureterolithiasis. 4. There is no free intraperitoneal fluid or air. 5. A vaginal contraceptive ring is again noted. MDM: This is a 26-year-old female presenting to emergency department with nausea , vomiting, upper and lower abdominal pain 5 days. Patient was recently started on Keflex for urinary tract infection and states she continues to have pain. Urine dip is negative for infection. Urine is negative. CBC shows no significant anemia or infection. CMP shows no significant electrolyte imbalance. Liver enzymes are normal. Bilirubin is normal. Lipase is 164. Pelvic ultrasound reviewed by radiologist is unremarkable. CT abdomen and pelvis reviewed by radiologist as there is increasing cholelithiasis and the gallbladder wall now appears thickened. Clinical correlation is indicated to exclude the possibility of cholecystitis. No bile duct dilatation is evident and the pancreas appears unremarkable. No evidence of bowel obstruction or inflammation. Substantial stool is again seen in the colon. There again appears to been a previous appendectomy. No evidence of urinary outflow obstruction or ureterolithiasis. No free intraperitoneal fluid or air. Vaginal contraceptive ring is again noted. Since labs are normal and no significant elevation in liver enzymes or bilirubin , low suspicion cholecystitis or choledocholithiasis. Patient is afebrile upon arrival to ED. patient is not tachycardic. Vital signs remained stable. Patient remains afebrile. Differential diagnosis includes but not limited to acute appendicitis, diverticulitis, diverticulosis, bowel obstruction, constipation, infectious colitis, irritable bowel syndrome, inflammatory bowel disease, viral gastroenteritis, abdominal aortic aneurysm, food intolerance, celiac disease, UTI, pyelonephritis, nephrolithiasis, acute urinary retention or colorectal cancer. I doubt any emergent conditions such as appendicitis, diverticulitis, bowel obstruction, abdominal aortic aneurysm at this time due to normal vital signs and normal lab results. Patient is appropriate for outpatient management. Patient will be given prescription for MiraLAX, Colace, ibuprofen and [place]. Instructed patient to follow-up with primary care provider in the next 2-3 days for reassessment and additional management. Return to ED for any high fever, chest pain, difficulty breathing, shortness breath, wheezing, vomiting, diarrhea, abdominal pain or any new or worsening symptoms. Patient verbalizes understanding. All questions answered at discharge. Departure Diagnosis: Primary Impression: Abdominal pain Abdominal location: unspecified location Qualified Code: R10.9 - Abdominal pain, unspecified location Additional Impression: Nausea and vomiting Vomiting type: unspecified Vomiting Intractability: unspecified Qualified Code: R11.2 - Nausea and vomiting, intractability of vomiting not specified, unspecified vomiting type Condition: Stable TABBY GRAVES NP Jan 30, 2017 09:14
--- NOTE | 2017-01-30 09:33 | RADRPT ---
PROCEDURE: Pelvic Ultrasound. CLINICAL INDICATION: Pelvic pain TECHNIQUE: Sonographic evaluation of the pelvis was performed utilizing transabdominal and transva ginal technique. Curved array transabdominal transducer technique was utilized as was an endovagin al probe. Images were reviewed on the high-resolution PACS workstation. COMPARISON: No prior studies are available for comparison. FINDINGS: The uterus is normal measuring 7.2 x 3.2 x 4.0 cm in dimension. No uterine masses are identified. The endometrium is thin and normal measuring 2.7 mm. Normal flow is identified in the bilateral ovaries. The right ovary is normal measuring 2.6 x 1.5 x 1 point a cm. The left ovary is normal measuring 2.9 x 1.7 x 1.4 cm in dimension. There are no adnexal masses. No free fluid is seen. IMPRESSION: 1. Unremarkable ultrasound of the pelvis. RPTAT: KK .Domingo Long MD, MD Date Time Electronically viewed and signed by .Domingo Long MD, MD on 01/30/2017 09:33 .B/
[2017-01-30 09:41] LABS: BASOPHILS % 0.3 % (0.0-2.0); HEMATOCRIT 42.6 % (37.0-47.0); HEMOGLOBIN 15.3 g/dl (12.0-16.0); LYMPHOCYTES # 2.3 10^3/ul (0.8-2.9); LYMPHOCYTES % 31.3 % (15.0-51.0); MEAN CORPUSCULAR HEMOGLOBIN 32.7 pg (29.0-33.0); MEAN CORPUSCULAR HGB CONC 35.9 g/dl (32.0-37.0); MEAN PLATELET VOLUME 9.1 fl (7.4-10.4); MONOCYTE # 0.4 10^3/ul (0.3-0.9); MONOCYTES % 5.6 % (0.0-11.0); NEUTROPHILS % 62.7 % (39.0-77.0); PLATELET COUNT 117 10^3/UL (140-415); RED BLOOD COUNT 4.68 10^6/ul (4.20-5.40); RED CELL DISTRIBUTION WIDTH 11.3 % (11.5-14.5); WHITE BLOOD COUNT 7.5 10^3/ul (4.8-10.8)
[2017-01-30 10:14] LABS: ALBUMIN/GLOBULIN RATIO 1.17; BILIRUBIN,INDIRECT 0.1 mg/dl (0-1.1); BILIRUBIN,TOTAL 0.1 mg/dl (0.2-1.3); CALCIUM 9.5 mg/dl (8.4-10.2); CREATININE 0.86 mg/dl (0.44-1.00); TOTAL PROTEIN 7.4 g/dl (6.1-8.1)
[2017-01-30 11:48] LABS: ADD UMIC YES; UR ASCORBIC ACID NEGATIVE (NEGATIVE); UR BILIRUBIN (Dip) NEGATIVE (NEGATIVE); UR BLOOD (Dip) 1+ mg/dL (NEGATIVE); UR CLARITY CLEAR (CLEAR); UR COLOR YELLOW (YELLOW); UR GLUCOSE (Dip) NEGATIVE (NEGATIVE); UR KETONES (Dip) TRACE mg/dL (NEGATIVE); UR LEUKOCYTE ESTERASE (Dip) NEGATIVE Leu/ul (NEGATIVE); UR MUCUS FEW /HPF (NONE SEEN); UR NITRITE (Dip) NEGATIVE (NEGATIVE); UR RBC 1 /HPF (0-5); UR SPECIFIC GRAVITY (Dip) 1.028 (1.003-1.030); UR TOTAL PROTEIN (Dip) NEGATIVE (NEGATIVE); UR UROBILINOGEN (Dip) NEGATIVE (NEGATIVE)
--- NOTE | 2017-01-30 12:29 | RADRPT ---
PROCEDURE: CT Abdomen and Pelvis without contrast CLINICAL INDICATION: Abdominal pain with nausea and vomiting TECHNIQUE: Transaxial images were obtained through the abdomen and pelvis on a multi-slice scanner without the intravenous contrast administration. No oral contrast had previously been given. Sagit zari and coronal re-formations were subsequently reconstructed. One or more of the following dose reduction techniques were used: - Automated exposure control. - Adjustment of the mA and/or kV according to patient size. - Use of iterative reconstruction technique. Radiation dose: CTDIvol = 14.58 mGy; DLP = 884.03 mGy-cm. COMPARISON: 10/21/2016 FINDINGS: Lung bases: The visualized lung bases appear unremarkable. Liver: Normal in size and in attenuation. There is no focal lesion. Gallbladder: There is increasing cholelithiasis and the gallbladder wall now appears mildly thickene d. Bile ducts: The intra and extrahepatic bile ducts are normal in caliber. Pancreas: Appears normal with no mass or inflammation evident. Spleen: The spleen is upper normal in size. Adrenals: Normal with no mass identified. Kidneys, ureters and bladder: The kidneys are normal in size and there is no mass, pathological calc ification, or hydronephrosis evident. There is no perinephric stranding. The ureters are normal in c aliber and no ureteroliths are identified. The bladder appears unremarkable. Reproductive organs: Unremarkable. A vaginal contraceptive ring is again evident. Stomach and bowel: The stomach and bowel appear unremarkable without evidence of bowel obstruction o r inflammation. Appendix: There appears to been a previous appendectomy. Peritoneum: No free intraperitoneal fluid or air is identified. Aorta: Normal in caliber with no aneurysmal dilatation. IVC: Unremarkable. Lymph nodes: No pathologically enlarged nodes are identified. Osseous structures: The osseous elements appear intact. IMPRESSION: 1. Since the previous CT of 10/21/2016, there is increasing cholelithiasis and the gallbladder wall now appears thickened. Clinical correlation is indicated to exclude the possibility of cholecystit is. No bile duct dilatation is evident and the pancreas appears unremarkable. 2. No evidence of bowel obstruction or inflammation. Substantial stool is again seen in the colon. There again appears to been a previous appendectomy. 3. No evidence of urinary outflow obstruction or ureterolithiasis. 4. There is no free intraperitoneal fluid or air. 5. A vaginal contraceptive ring is again noted. Helena Blount Physician Date Time Electronically viewed and signed by Helena Blount Physician on 01/30/2017 12:29 /
[2017-01-30] MEDS ORDERED: IBUP-1542 PO (12:36)
[2017-01-30] MEDS ORDERED: DOCU-144 PO (12:36)
[2017-01-30] MEDS ORDERED: POLY17PO6 PO (12:36)
[2017-01-30] MEDS ORDERED: HYDR-906 PO (12:36)
[2017-01-30] MEDS ORDERED: ONDA4TAB8 PO (12:56)
[2017-01-30 13:10] VITALS: BP 124/77; PULSE 84; RESP 20; TEMP 97.8
== END 2017-01-30 13:10 | disposition home or self-care (01) ==
LOC: FTE 08:03
DX: R10.11 Right upper quadrant pain (principal); R11.2 Nausea with vomiting, unspecified
CPT/HCPCS: 36415; 74176; 76830; 76856; 80053; 81001; 83690; 84703; 85025; 96361; 96374; 96375; 99285; J2270; J2405; J7030

== ENCOUNTER 2017-02-18 12:12 | Observation (INO) | payer BC ==
[2017-02-18] VITALS (20 sets, daily range): BP systolic 101–125; BP diastolic 55–71; PULSE 93–122; RESP 12–24; Ht 167.6 cm; Wt 83.0 kg
[~2017-02-18] VITALS: Ht 167.6 cm; Wt 83.0 kg
[~2017-02-18 12:12] MED LIST changes: +DOCU-144 PO; +HYDR-906 PO; +IBUP-1542 PO; +ONDA4TAB8 PO; +POLY17PO6 PO; +ROCURONIUM 50 MG INJ ONE; +SUCCINYLCHOLINE CHLORIDE 100 MG/5 ML SYG IV ONE
[2017-02-18] MEDS ORDERED: ETON1VAG VG (12:57)
[2017-02-18] MEDS ORDERED: BUPR300T48 PO (12:57)
[2017-02-18] MEDS ORDERED: BUPIVACAINE 0.25% (MPF) 10 ML 10 ML VIAL ONE ×2 (13:34→16:28)
--- NOTE | 2017-02-18 14:03 | HPN ---
Date/Time of Note Date/Time of Note DATE: 02/18/17 TIME: 14:03 Interval H&P Admission Note Pt. seen H&P reviewed: No system changes DAVID ROSS MD Feb 18, 2017 14:03
[2017-02-18] MEDS ORDERED: FENTAnyl 50 MCG/ML VIAL ONE ×2 (14:05→15:48)
[2017-02-18] MEDS ORDERED: PROPOFOL 20 ML ONE (14:48)
[2017-02-18] MEDS ORDERED: ROPIVACAINE 0.5 % 30 ML VIAL ONE (14:48)
[2017-02-18] MEDS ORDERED: SUGAMMADEX SODIUM 200 MG/2 ML VIAL IV ONE (14:48)
[2017-02-18] MEDS ORDERED: LIDOCAINE 2% (SDV) 5 ML INJ ONE (14:48)
[2017-02-18] MEDS ORDERED: CLINDAMYCIN 900 MG/D5W (PMX) 50 ML IVPB ONE (14:48)
[2017-02-18] MEDS ORDERED: ETOMIDATE 20 MG INJ ONE (14:48)
[2017-02-18] MEDS ORDERED: DIPHENHYDRAMINE 50 MG INJ IV PRN (15:00)
[2017-02-18] MEDS ORDERED: FENTAnyl 50 MCG/ML VIAL IV PRN ×2 (15:00)
[2017-02-18] MEDS ORDERED: MEPERIDINE 25 MG INJ IV PRN (15:00)
[2017-02-18] MEDS ORDERED: ONDANSETRON 4 MG INJ IV PRN ×2 (15:00→17:00)
[2017-02-18] MEDS ORDERED: HYDROmorphONE (0.2 MG/ML) 10ML SYG IV PRN (15:00)
[2017-02-18] MEDS: HYDROmorphONE (0.2 MG/ML) 10ML SYG IV PRN ×5 (16:57→17:26)
--- NOTE | 2017-02-18 16:59 | OPR ---
Date/Time of Note Date/Time of Note DATE: 02/18/17 TIME: 16:44 Operative Report Procedure Date: Feb 18, 2017 Preoperative Diagnosis Chronic cholecystitis/cholelithiasis Postoperative Diagnosis Severe active chronic cholecystitis/cholelithiasis Operation Performed 1. Laparoscopic cholecystectomy 2. Modifier 22 (severe inflammation and technically difficult operation requiring time and effort in excess of that which is usual and customary of the procedure of this type.) Surgeon: DAVID ROSS MD Anesthesia Type: general Anesthesiologist: LESLIE BABCOCK Estimated Blood Loss: 10 - 50 ml's Transfusion Required: no Specimens Gallbladder Grafts/Implants: none Complications: no Pt Condition Post Procedure: stable Disposition: PACU Indications The patient is a obese 26-year-old female who presented to the office with right upper quadrant abdominal pain. This had been going on for quite some time and required multiple emergency room visits. The patient had clinical signs and symptoms of biliary colic and chronic cholecystitis which was confirmed via an ultrasound which showed cholelithiasis with gallbladder wall thickening. The patient was scheduled for laparoscopic cholecystectomy; possible open as definitive treatment to prevent further sequelae of gallstone disease which include but are not limited to: Gangrenous cholecystitis, choledocholithiasis, gallstone pancreatitis, ascending cholangitis, etc. All risks and benefits of the procedure including but not limited to: Wound infection, excessive bleeding, common bile duct injury, postoperative biliary leak, retained common bile duct stone, injury to intra-abdominal organs, conversion to open procedure, possible need for subsequent surgeries, etc. were all explained to the patient in full detail. She fully understood and wished to proceed with the procedure. Informed consent was therefore obtained. Operative\Procedure Findings Severe and active chronic cholecystitis with cholelithiasis. Extensive scarring the area of the cystic duct structures as well as the liver bed. Procedure required an amount of time and technical effort which is in excess of that which is usual and customary for procedure of this type. Therefore, modifier 22 should justifiably be applied. Procedure Description The patient was brought to the operating room and placed supine on the operating table. Bilateral sequential compression devices were placed on both lower extremities. A dose of broad-spectrum perioperative intravenous antibiotics was given. After the induction of smooth general endotracheal anesthesia the patient's abdomen was prepped and draped in the standard surgical fashion. After performance of the surgical timeout a 5 mm incision was made in the inferior umbilicus and a Veress needle was used to access the intra- abdominal cavity atraumatically. Pneumoperitoneum was then obtained and the Veress needle was exchanged for a 5 mm trocar through which a 5 mm laparoscope was placed. Three further working ports were then placed a 12 mm port in the sub -xiphoid region and two 5 mm ports in the right upper quadrant. All port sites were anesthetized with 0.25% Marcaine prior to incision. Diagnostic laparoscopy showed a distended and erythematous gallbladder in the right upper quadrant. An attempt was made to grasp the gallbladder using an atraumatic grasper, however, this was not possible due to the distention of the gallbladder. The gallbladder was then decompressed using a decompressing needle inserted through the lateralmost port site. Approximately 65 cc of dark bile was aspirated from the gallbladder. This enabled the gallbladder to be grasped. Using atraumatic graspers the gallbladder was grasped and retracted superiorly and laterally exposing the area of Ravi's pouch. There was dense scarring of the gallbladder in the area of the triangle of Calot. There was limited mobility due to scarring and inflammatory adhesions. Mobilization of the gallbladder was done in its medial and lateral attachments to the liver bed in order to gain better exposure. The gallbladder was very thick-walled. Dissection was begun in the area of the triangle of Calot using a combination of blunt dissection and hook electrocautery. There was extensive severe and active chronic cholecystitis with severe inflammatory adhesions. Extensive amount of time in excess of that which is usual and customary for procedure of this type was needed to tediously dissect the area to be able to identify the cystic duct structures. After much tedious dissection a tubular structure was identified entering straight into the neck of the gallbladder. It was noted to be clearly entering the gallbladder. It was identified as the cystic duct and dissected free of surrounding tissues and clipped proximally and distally x 3 and transected using EndoShears very high up on the gallbladder. Dissection was then continued. A second tubular structure was identified medial and parallel to the cystic duct. It was noted to be entering straight into the gallbladder. It was identified as the cystic artery was identified and dissected free of surrounding tissues. It too was clipped proximally and distally x 3 and transected using EndoShears. The gallbladder was then dissected off the liver bed using electrocautery. The gallbladder was cemented to the liver bed from prior attacks of chronic cholecystitis. There was severe scarring in this area. An amount of technical skill, effort, and time in excess of that which is usual and customary for procedure of this type was spent to dissect the gallbladder off the liver bed. Once completely free the gallbladder was placed in an Endo Catch bag and withdrawn through the subxiphoid port site and passed off the field as specimen. Hemostasis was then inspected for and noted to be adequate. The abdomen was then irrigated with several liters of warm normal saline and the irrigant returned crystal clear. The fascia of the subxiphoid port site was then reapproximated using an endo-close device. Pneumoperitoneum was then released and all remaining trochars were withdrawn under direct vision. The subcutaneous tissues were irrigated with more warm normal saline and further local anesthesia was applied around the skin of the incision sites. The skin was then reapproximated using 4-0 Monocryl sutures in subcuticular fashion. The incisions were cleaned and Dermabond was applied to the incisions and the patient was awoken from anesthesia and transported to the recovery room in stable condition. All counts were correct at the end of the case x 2. Due to the severe inflammation and active cholecystitis and technical difficulty of this operation and amount of skill, effort and time in excess of that which is usual and customary of a procedure of this type was spent in order to complete the operation safely. Modifier 22 should clearly and justifiably be applied to this procedure. DAVID ROSS MD Feb 18, 2017 16:59
[2017-02-18] MEDS ORDERED: HYDROCODONE/APAP (10/325) TAB PO PRN (17:00)
[2017-02-18] MEDS ORDERED: ACETAMINOPHEN 325 MG TAB PO PRN (17:00)
[2017-02-18] MEDS: HYDROmorphONE 1 MG/ML SYG IV PRN (18:45)
[2017-02-18] MEDS: SOD CHLORIDE 0.9% 1,000 ML IV SCH (18:46)
[2017-02-18] MEDS: DOCUSATE SODIUM 100 MG CAP PO SCH (21:56)
[2017-02-18] MEDS: FAMOTIDINE 20 MG TAB PO SCH (21:56)
[2017-02-18] MEDS ORDERED: NON-FORMULARY/PATIENT OWN MED (Lurasidone Hcl (Latuda) 120 MG) PO SCH (22:30)
[2017-02-18] MEDS: LEVETIRACETAM 500 MG TAB PO SCH (22:50)
[2017-02-18] MEDS: HYDROCODONE/APAP (5/325) TAB PO PRN (23:23)
[2017-02-19] MEDS: HYDROmorphONE 1 MG/ML SYG IV PRN ×2 (01:10→12:50)
[2017-02-19 02:00] VITALS: BP 111/69; RESP 20
[2017-02-19] MEDS: SOD CHLORIDE 0.9% 1,000 ML IV SCH ×2 (02:55→12:50)
[2017-02-19] MEDS: HYDROCODONE/APAP (5/325) TAB PO PRN ×2 (05:40→09:57)
[2017-02-19 05:53] LABS: BASOPHILS % 0.2 % (0.0-2.0); HEMATOCRIT 37.8 % (37.0-47.0); HEMOGLOBIN 12.9 g/dl (12.0-16.0); LYMPHOCYTES % 15.5 % (15.0-51.0); MEAN CORPUSCULAR HEMOGLOBIN 31.9 pg (29.0-33.0); MEAN CORPUSCULAR HGB CONC 34.1 g/dl (32.0-37.0); MEAN CORPUSCULAR VOLUME 93.6 fl (82.0-101.0); MEAN PLATELET VOLUME 8.8 fl (7.4-10.4); MONOCYTE # 0.3 10^3/ul (0.3-0.9); MONOCYTES % 4.3 % (0.0-11.0); NEUTROPHILS % 79.7 % (39.0-77.0); PLATELET COUNT 104 10^3/UL (140-415); RED BLOOD COUNT 4.04 10^6/ul (4.20-5.40); RED CELL DISTRIBUTION WIDTH 11.6 % (11.5-14.5); WHITE BLOOD COUNT 6.2 10^3/ul (4.8-10.8)
[2017-02-19 06:13] LABS: ALBUMIN 3.1 g/dl (3.3-4.9); ALBUMIN/GLOBULIN RATIO 1.19; BILIRUBIN,INDIRECT 0.3 mg/dl (0-1.1); BILIRUBIN,TOTAL 0.3 mg/dl (0.2-1.3); CALCIUM 8.3 mg/dl (8.4-10.2); CREATININE 0.7 mg/dl (0.44-1.00); POTASSIUM 4.7 mmol/L (3.5-5.1); TOTAL PROTEIN 5.7 g/dl (6.1-8.1)
[2017-02-19 07:38] VITALS: BP 103/61; RESP 20
[2017-02-19] MEDS: DOCUSATE SODIUM 100 MG CAP PO SCH (08:33)
[2017-02-19] MEDS: FAMOTIDINE 20 MG TAB PO SCH (08:33)
[2017-02-19] MEDS: LEVETIRACETAM 500 MG TAB PO SCH (08:34)
--- NOTE | 2017-02-19 08:50 | PN ---
Date/Time of Note Date/Time of Note DATE: 02/19/17 TIME: 08:48 Assessment/Plan Lines/Catheters IV Catheter Type (from Nrsg): Peripheral IV Assessment/Plan Assessment/Plan 26-year-old female status post laparoscopic cholecystectomy postop day #1 * LFTs are okay * Surgically stable for discharge home * Follow-up in office in 1 week. Subjective 24 Hr Interval Summary Expected incisional pain. Tolerating diet. Has ambulated. Afebrile. Exam/Review of Systems Vital Signs Vitals Vital Signs Date Time Temp Pulse Resp B/P Pulse Ox O2 Delivery O2 Flow Rate FiO2 02/19/17 07:38 97.8 89 20 103/61 98 02/18/17 18:10 Room Air Intake and Output 02/18/17 02/18/17 02/19/17 15:00 23:00 07:00 Intake Total 1900 ml 1000 ml Output Total 50 ml Balance 1900 ml -50 ml 1000 ml Exam Free Text/Dictation GENERAL: Awake, alert, oriented x 3. No acute distress. SKIN: No jaundice. HEENT: PERRLA, EOMI, No Scleral Icterus CARDIOVASCULAR: S1S2, regular rate and rhythm. No murmurs appreciated. RESPIRATORY: Clear to auscultation bilaterally. ABDOMEN: Soft, bowel sounds present, nondistended, expected incisional tenderness to palpation. No rebound or guarding. INCISIONS: Clean, dry, intact EXTREMITIES: Free range of motion x 4. No cyanosis, edema, or clubbing. Results Result Diagram: 02/19/17 0525 02/19/17 0525 DAVID ROSS MD Feb 19, 2017 08:50
--- NOTE | 2017-02-19 08:51 | PDOCDIS ---
Discharge Instructions DIAGNOSIS Discharge Diagnosis Severe active chronic cholecystitis/cholelithiasis CONDITION Patient Condition: Stable HOME CARE INSTRUCTIONS: Diet Instructions: RegularSpecial Diet: regular ACTIVITY: Activity Restrictions: Avoid heavy lifting FOLLOW UP/APPOINTMENTS Follow-up Plan Follow-up in office in 1 week DAVID ROSS MD Feb 19, 2017 08:51
--- NOTE | 2017-02-19 08:56 | DS ---
Date/Time of Note Date/Time of Note DATE: 02/19/17 TIME: 08:53 Discharge Summary Admission/Discharge Info Admit Date/Time Feb 18, 2017 at 18:37 Discharge Date/Time February 19, 2017 Discharge Diagnosis Severe active chronic cholecystitis/cholelithiasis Patient Condition: Stable Procedures Laparoscopic cholecystectomy Hx of Present Illness Patient is an obese 26-year-old female who presented to the office with right upper quadrant abdominal pain. The patient was scheduled for elective cholecystectomy. She underwent procedure on February 18, 2017. Intraoperatively she was found to have severe active cholecystitis. The procedure was completed without difficulty. Given the severity of the chronic inflammation and postoperative pain the patient was kept for observation and pain control. Hospital Course Patient's hospital course has been uneventful. On postoperative day 1 her pain has been better controlled, LFTs are within normal limits. She is tolerating diet and ambulating. Home Meds Reported Medications Etonogestrel/Ethinyl Estradiol (Nuvaring Vaginal Ring) 1 Each Vag.ring, 1 EACH VG Q28 02/18/17 Bupropion Hcl* (Wellbutrin XL*) 300 Mg Tab.sr.24h, 300 MG PO DAILY, TAB.SA 02/18/17 Lurasidone Hcl (LATUDA) 120 Mg Tablet, 120 MG PO DAILY, #30 TAB 10/25/16 Levetiracetam* (Keppra*) 500 Mg Tablet, 500 MG PO DAILY, TAB 10/25/16 Discontinued Reported Medications Lactobacillus Combination No.4 (Probiotic) 1 Each Capsule, PO DAILY, CAP 10/25/16 Bismuth Subsalicylate* (Pepto-Bismol*) 262 Mg/15 Ml Oral.susp, 30 ML PO, ML 10/25/16 Acetaminophen/Aspirin/Caffeine* (Excedrin*) 1 Tab Tab, 1 TAB PO, TAB 10/25/16 Bupropion Hcl* (Wellbutrin XL*) 300 Mg Tab.sr.24h, 300 MG PO DAILY, TAB.SA 10/25/16 Discontinued Scripts Ondansetron Hcl* (Zofran*) 4 Mg Tablet, 4 MG PO Q6H for NAUSEA AND/OR VOMITING, #15 TAB Prov:TABBY GRAVES NP 01/30/17 Hydrocodone/Acetaminophen ([place] 5-325 Tablet) 1 Each Tablet, 1 TAB PO Q6H Y for PAIN, #7 TAB Prov:TABBY GRAVES NP 01/30/17 Ibuprofen* (Motrin*) 600 Mg Tab, 600 MG PO Q6, #15 TAB Prov:TABBY GRAVES NP 01/30/17 Docusate Sodium* (Colace*) 100 Mg Capsule, 100 MG PO BID, #15 CAP Prov:TABBY GRAVES NP 01/30/17 Polyethylene Glycol* (Miralax*) 17 Gm Powd.pack, 17 GM PO DAILY, #7 Prov:TABBY GRAVES NP 01/30/17 Cyclobenzaprine Hcl* (Cyclobenzaprine Hcl*) 10 Mg Tablet, 10 MG PO Q12 Y for muscle pain, #15 TAB Prov:GILBERTO AMAYA 01/25/17 Sulfamethoxazole/Trimethoprim* (Bactrim Ds* Tablet) 1 Each Tablet, 1 TAB PO DAILY, #7 TAB Prov:GILBERTO AMAYA 01/25/17 Follow-up Plan Follow-up in office in 1 week Primary Care Provider Sam Lee MD Time spent on discharge: > 30 minutes Pending Labs Laboratory Tests Test 02/19/17 05:25 White Blood Count 6.210^3/ul (4.8-10.8) Red Blood Count 4.0410^6/ul (4.20-5.40) Hemoglobin 12.9g/dl (12.0-16.0) Hematocrit 37.8% (37.0-47.0) Mean Corpuscular Volume 93.6fl (82.0-101.0) Mean Corpuscular Hemoglobin 31.9pg (29.0-33.0) Mean Corpuscular Hemoglobin Concent 34.1g/dl (32.0-37.0) Red Cell Distribution Width 11.6% (11.5-14.5) Platelet Count 92009^3/UL (140-415) Mean Platelet Volume 8.8fl (7.4-10.4) Neutrophils % 79.7% (39.0-77.0) Lymphocytes % 15.5% (15.0-51.0) Monocytes % 4.3% (0.0-11.0) Eosinophils % 0.0% (0.0-7.0) Basophils % 0.2% (0.0-2.0) Nucleated Red Blood Cells % 0.0/100WBC (0.0-0.0) Neutrophils # (Manual) 5.010^3/ul (1.7-7.5) Lymphocytes # 1.010^3/ul (0.8-2.9) Monocytes # 0.310^3/ul (0.3-0.9) Eosinophils # 0.010^3/ul (0.0-0.5) Basophils # 0.010^3/ul (0.0-0.1) Nucleated Red Blood Cells # 0.010^3/ul (0.0-0.0) Sodium Level 136mmol/L (135-144) Potassium Level 4.7mmol/L (3.5-5.1) Chloride Level 108mmol/L (97-110) Carbon Dioxide Level 25mmol/L (21-31) Anion Gap 8 (8-16) Blood Urea Nitrogen 4mg/dl (7-20) Creatinine 0.70mg/dl (0.44-1.00) Glucose Level 97mg/dl (70-220) Calcium Level 8.3mg/dl (8.4-10.2) Total Bilirubin 0.3mg/dl (0.2-1.3) Direct Bilirubin 0.00mg/dl (0.00-0.20) Indirect Bilirubin 0.3mg/dl (0-1.1) Aspartate Amino Transf (AST/SGOT) 30IU/L (15-46) Alanine Aminotransferase (ALT/SGPT) 51IU/L (13-69) Alkaline Phosphatase 61IU/L (42-121) Total Protein 5.7g/dl (6.1-8.1) Albumin 3.1g/dl (3.3-4.9) Globulin 2.60g/dl (1.3-3.2) Albumin/Globulin Ratio 1.19 DAVID ROSS MD Feb 19, 2017 08:55
[2017-02-19] MEDS ORDERED: NON-FORMULARY/PATIENT OWN MED (Lurasidone Hcl (Latuda) 120 MG) PO SCH (09:00)
[2017-02-19] MEDS ORDERED: LEVETIRACETAM 500 MG TAB PO SCH (09:00)
[2017-02-19 13:52] VITALS: BP 100/75; RESP 20
== END 2017-02-19 14:45 | disposition home or self-care (01) ==
LOC: SDS 12:12 → MS2 18:37
PROVIDERS: ADMIT Surgery; ATTEND Surgery
DX: K80.10 Calculus of gallbladder with chronic cholecystitis without obstruction (principal); E66.01 Morbid (severe) obesity due to excess calories; Z68.29 Body mass index [BMI] 29.0-29.9, adult; F31.9 Bipolar disorder, unspecified
CPT/HCPCS: 47562; 80053; 84703; 85025; 96361; 96374; 96375; G0378; J1170; J2175; J2405; J2795; J3010; J7030; J7999

== ENCOUNTER 2018-09-02 20:31 | Emergency (ER) | payer BC ==
[~2018-09-02] VITALS: Ht 167.6 cm; Wt 100.9 kg
[~2018-09-02 20:31] MED LIST changes: -BISM262O23 PO; -CYCL-319 PO; -DOCU-144 PO; +ETON1VAG VG; -EXCED PO; -HYDR-906 PO; -IBUP-1542 PO; -LACT1CAP49 PO; -ONDA4TAB8 PO; -POLY17PO6 PO; -ROCURONIUM 50 MG INJ ONE; -SUCCINYLCHOLINE CHLORIDE 100 MG/5 ML SYG IV ONE; -SULF1TAB31 PO
[2018-09-02] MEDS ORDERED: SOD CHLORIDE 0.9% 1,000 ML IV STA (20:35)
--- NOTE | 2018-09-02 20:42 | ERD ---
ER Documentation Chief Complaint Chief Complaint Syncope HPI 28-year-old female who presents to the emergency room with a history of pots (postural orthostatic tachycardia syndrome ) with recurrent episodes of syncope and near syncope. The patient states that just prior to arrival she was taking a math test and was extremely anxious. She started to feel prodrome like she might pass out. She stood up and had a syncopal episode. The patient denies any significant injury from a syncopal episode. No prodrome of chest pain shor tness of breath or headache. Patient states that she is feeling back to her baseline. Patient does note that she has increased her protein intake as she is weight lifting more recently. ROS All systems reviewed and are negative except as per history of present illness. Medications Home Meds Reported Medications Etonogestrel/Ethinyl Estradiol (Nuvaring Vaginal Ring) 1 Each Vag.ring, 1 EACH VG Q28 02/18/17 Bupropion Hcl* (Wellbutrin XL*) 300 Mg Tab.sr.24h, 300 MG PO DAILY, TAB.SA 02/18/17 Lurasidone Hcl (LATUDA) 120 Mg Tablet, 120 MG PO DAILY, #30 TAB 10/25/16 Levetiracetam* (Keppra*) 500 Mg Tablet, 500 MG PO DAILY, TAB 10/25/16 Allergies Allergies: Coded Allergies: Penicillins (Unverified Allergy, Unknown, 02/18/17) PMhx/Soc History of Surgery: Yes (LAP APPY) Anesthesia Reaction: No Hx Neurological Disorder: No Hx Respiratory Disorders: No Hx Cardiac Disorders: Yes (POTS, ITCP, TRICUSPID REGURGITATION) Hx Psychiatric Problems: Yes (BI-POLAR) Hx Miscellaneous Medical Probl: No Hx Alcohol Use: No Hx Substance Use: No Hx Tobacco Use: No FmHx Family History: No diabetes Physical Exam Vitals Vital Signs Date Temp Pulse Resp B/P (MAP) Pulse Ox O2 O2 Flow FiO2 Time Delivery Rate 09/02/18 98.8 94 17 133/81 100 20:44 (98) Physical Exam General: Well developed, well nourished, no acute distress Head: Normocephalic, atraumatic. Eyes: Pupils equally reactive, EOM intact ENT: Moist mucous membranes Neck: Supple, no lymphadenopathy Respiratory: Lungs clear bilaterally, no distress Cardiovascular: RRR, no murmurs, rubs, or gallops Abdominal: Soft, non-tender, non-distended, no peritoneal signs : Deferred MSK: No edema, no unilateral swelling, 5/5 strength Neurologic: Alert and oriented, moving all extremities, normal speech, no focal weakness, no cerebellar signs Skin: No rash Psych: Normal mood Result Diagram: 09/02/18204909/02/182049 Results 24 hrs Laboratory Tests Test 09/02/18 20:50 09/02/18 21:08 White Blood Count 9.6 10^3/ul Red Blood Count 4.46 10^6/ul Hemoglobin 14.1 g/dl Hematocrit 42.2 % Mean Corpuscular Volume 94.6 fl Mean Corpuscular Hemoglobin 31.6 pg Mean Corpuscular Hemoglobin Concent 33.4 g/dl Red Cell Distribution Width 12.0 % Platelet Count 132 10^3/UL Mean Platelet Volume 8.3 fl Immature Granulocytes % 0.400 % Neutrophils % 65.2 % Lymphocytes % 27.4 % Monocytes % 6.6 % Eosinophils % 0.0 % Basophils % 0.4 % Nucleated Red Blood Cells % 0.0 /100WBC Immature Granulocytes # 0.040 10^3/ul Neutrophils # 6.3 10^3/ul Lymphocytes # 2.6 10^3/ul Monocytes # 0.6 10^3/ul Eosinophils # 0.0 10^3/ul Basophils # 0.0 10^3/ul Nucleated Red Blood Cells # 0.0 10^3/ul Sodium Level 139 mmol/L Potassium Level 3.9 mmol/L Chloride Level 102 mmol/L Carbon Dioxide Level 27 mmol/L Anion Gap 10 Blood Urea Nitrogen 13 mg/dl Creatinine 0.75 mg/dl Est Glomerular Filtrat Rate mL/min > 60 mL/min Glucose Level 101 mg/dl Calcium Level 9.3 mg/dl POC Beta HCG, Qualitative NEGATIVE Current Medications Medications Dose Sig/Rahul Start Time Status Last (Trade) Ordered Route PRN Stop Time Admin Dose Reason Admin Sodium 1,000 ml @ Q1H STAT 09/02/18 DC 09/02/18 Chloride 1,000 mls/hr IV 20:35 20:59 09/02/18 21:34 Procedures/MDM EKG, MONITORS, & DIAGNOSTIC IMAGING: EKG: I reviewed and interpreted a 12-lead EKG. Rhythm: Normal sinus rhythm, normal QRS and QTc, no Brugada ST Changes: No contiguous ST segment elevations T waves: No contiguous T wave inversions Impression: No evidence of acute cardiac ischemia LAB INTERPRETATION: I reviewed the laboratory testing and it shows no evidence of acute process MEDICAL DECISION MAKING: The patient syncopal episode today is very consistent with her baseline known disorder. The patient has frequent episodes of syncope almost multiple times per week. The patient was additionally very anxious and this is likely consistent with her baseline. The patient exhibits no signs or symptoms concerning for serious etiology of syncope such as subarachnoid hemorrhage, pulmonary embolism, arrhythmia, acute coronary syndrome or ruptured ectopic . Basic blood work to rule out anemia and renal dysfunction would be appropriate. EKG to rule out cardiac arrhythmia. ER COURSE: * Reassurance provided. Patient given IV fluids. Remains hemodynamically stable. * Accu-Chek in the field was normal * Patient is ambulatory at baseline, laboratory testing is unremarkable and the patient is tolerating oral intake. She is safe for outpatient management. CONSULTATION: None DISPOSITION PLAN: The patient does not have an identifiable emergent medical condition that warrants inpatient hospitalization at this time. The patient is deemed safe for discharge with outpatient follow-up. We discussed follow up with the patient's primary care doctor within 24 to 48 hours as needed. We also discussed return to the emergency room for worsening symptoms or worsening condition. Outpatient referral: None required Discharge Medications: None required Departure Diagnosis: Primary Impression: Syncope Syncope type: unspecified Qualified Codes: R55 - Syncope and collapse Additional Impression: POTS (postural orthostatic tachycardia syndrome) Condition: Stable HARLEY BOO MD Sep 02, 2018 20:42
[2018-09-02 20:44] VITALS: Ht 167.6 cm; Wt 100.9 kg
[2018-09-02 22:41] VITALS: BP 111/68; PULSE 88; RESP 18
== END 2018-09-02 22:41 | disposition home or self-care (01) ==
LOC: E/R 20:31
DX: R55 Syncope and collapse (principal); I49.5 Sick sinus syndrome
CPT/HCPCS: 36415; 80048; 81025; 85025; 93005; 99284; J7030

== ENCOUNTER 2019-01-15 23:02 | Emergency (ER) | payer BC ==
[~2019-01-15] VITALS: Ht 167.6 cm; Wt 90.0 kg
[~2019-01-15 23:02] MED LIST changes: +ALBU8.5H8 INH; -BUPR300T48 PO; +GUAI120S25 PO; +IBUP-1542 PO; -LEVE-5 PO; -LURA120T PO
[2019-01-15 23:04] VITALS: Ht 167.6 cm; Wt 90.0 kg
[2019-01-16] MEDS ORDERED: DEXAMETHASONE 10 MG/ML 1 ML INJ IM ONE (01:00)
[2019-01-16] MEDS ORDERED: IBUPROFEN 600 MG TAB PO ONE (01:00)
--- NOTE | 2019-01-16 01:09 | ERD ---
ER Documentation Chief Complaint Chief Complaint CHEST PAIN X THIS AM. HPI 28-year-old female presented to ED for chest pain and fatigue over the past week. Patient denies fever chills night sweats. 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 Patient states she had similar symptoms a year ago and had costochondritis. Patient states that she is had a dry cough over the past week as well. Patient denies any chance of being . Patient denies any allergies to medications. ROS All systems reviewed and are negative except as per history of present illness. Medications Home Meds Active Scripts Rgzsljruvhl-C-Nufecujmjh Hb* (Guaifenesin* DM Syrup) 120 Ml Syrup, 10 ML PO Q4H PRN for COUGH for 10 Days, ML Prov:CONSTANTINE RAYMOND PA-C 01/16/19 Albuterol Sulfate* (Proair HFA*) 8.5 Gm Hfa.aer.ad, 2 PUFF INH Q4, #1 INHALER Prov:CONSTANTINE RAYMOND PA-C 01/16/19 Ibuprofen* (Ibuprofen*) 600 Mg Tablet, 600 MG PO Q6 for 10 Days, TAB Prov:CONSTANTINE RAYMOND PA-C 01/16/19 Reported Medications Etonogestrel/Ethinyl Estradiol (Nuvaring Vaginal Ring) 1 Each Vag.ring, 1 EACH VG Q28 02/18/17 Allergies Allergies: Coded Allergies: Penicillins (Unverified Allergy, Unknown, 09/02/18) PMhx/Soc History of Surgery: Yes (LAP APPY) Anesthesia Reaction: No Hx Neurological Disorder: No Hx Respiratory Disorders: No Hx Cardiac Disorders: Yes (POTS, ITCP, TRICUSPID REGURGITATION) Hx Psychiatric Problems: Yes (BI-POLAR) Hx Miscellaneous Medical Probl: No Hx Alcohol Use: No Hx Substance Use: No Hx Tobacco Use: No Smoking Status: Never smoker FmHx Family History: No diabetes, No coronary disease, No other Physical Exam Vitals Vital Signs Date Temp Pulse Resp B/P (MAP) Pulse Ox O2 O2 Flow FiO2 Time Delivery Rate 01/15/19 97.8 102 22 112/73 99 23:04 (86) Physical Exam GENERAL: Mild distress HEENT: Atraumatic. Conjunctivae are pink. Pupils equal, round, and reactive to light. There is no scleral icterus. Tympanic membranes clear bilaterally. Oropharynx clear. No nystagmus or photophobia. NECK: C-spine is soft and supple. There is no meningismus. There is no cervical lymphadenopathy. CHEST: Clear to auscultation bilaterally. There are no rales, wheezes or rhonchi. Pain to palpation to the anterior aspect of the chest HEART: Regular rate and rhythm. No murmurs, clicks, rubs or gallops. ABDOMEN:Soft, nontender and nondistended. Good bowel sounds. No rebound or guarding. No gross peritonitis. No gross organomegaly or masses. No Donaldson sign or McBurney point tenderness. BACK: No midline or flank tenderness. EXTREMITIES: Equal pulses bilaterally. There is no peripheral clubbing, cyanosi s or edema. No focal swelling or erythema. Full range of motion. Grossly neurovascularly intact. Results 24 hrs Laboratory Tests Test 01/16/19 01:05 POC Beta HCG, Qualitative NEGATIVE Current Medications Medications Dose Sig/Rahul Start Time Status Last (Trade) Ordered Route PRN Stop Time Admin Dose Reason Admin 10 mg ONCE ONCE 01/16/19 DC 01/16/19 Dexamethasone IM 01:00 01/16/19 00:50 (Decadron) 01:01 Ibuprofen 600 mg ONCE ONCE 01/16/19 DC 01/16/19 (Motrin) PO 01:00 01/16/19 00:51 01:01 Procedures/MDM ED course: The patient was stable throughout the ED course. The patient and/or family informed of laboratory and diagnostic imaging results throughout the ED course. EKG: Read by Dr. Camacho attending physician. EKG shows normal sinus rhythm at rate of 97 No arrhythmias, acute ST elevations or T wave changes were noted. Medications given in ER: Motrin Patient tolerated medication well with no adverse reactions. Patient reported improvement in pain. Medical decision making: Patient is a 28-year-old female complaining of chest pain fatigue x1 week. Patient's physical exam revealed pain to palpation to the anterior aspect of her chest. Patient states that she has had a cough over the last week but it has been dry. Lung sounds are clear bilateral patient is O2 sats 99%. At this time I have low suspicion for pneumonia, DVT, PE. Patient has good S1-S2 sounds no signs of friction rubs. At this time I have low suspicion for pericarditis myocarditis. Patient's EKG was nonspecific and showed no signs of ST elevation or low voltage QRS complex. Patient does have a history of heart dysrhythmias but states that they come and go. Patient's EKG showed no signs of heart arrhythmias. Patient's symptoms are most consistent with costochondritis. Patient was given first dose of Motrin in the ED as being discharged with a prescription for guaifenesin, Motrin, Pro Air inhaler. Advised patient if symptoms worsen return to ER immediately otherwise follow-up with primary care provider in 1 to 2 days. All questions were answered upon discharge the patient is agreement treatment plan Prescription for home: Motrin Pro Air Guaifenesin I have discussed with the patient proper use and common side effects to expert with the medication . I advised the patient/family to speak with the pharmacist dispensing the medication to be advised of any potential drug interactions with other medication or supplements they may be taking. Discharge: At this time, patient is stable for discharge and outpatient management. I have instructed the patient to follow-up with his\her primary care physician in 1 to 2 days. I have discussed with the patient the possibility of needing to see a specialist for further work-up and imaging studies if symptoms persist. I have instructed the patient to promptly return to the ER for any new or worsening symptoms including increased pain, fever, nausea, vomiting, weakness or LOC. The patient and\or family expressed understanding of and agreement with this plan. All questions were answered. Home care instructions were provided. Disclaimer: Inadvertent spelling and grammatical errors are likely due to EHR\dictation software use and do not reflect on the overall quality of patient care. Also, please note that the electronic time recorded on the note does not necessarily reflect the actual time of the patient encounter. Departure Diagnosis: Primary Impression: Acute costochondritis Additional Impression: Bronchitis Condition: Stable Patient Instructions: Bronchitis With Wheezing (Adult), Chest Wall Pain, Costochondritis Referrals: COMM[facility]ITY CL[facility] YOU HAVE RECEIVED A MEDICAL SCREENING EXAM AND THE RESULTS INDICATE THAT YOU DO NOT HAVE A CONDITION THAT REQUIRES URGENT TREATMENT IN THE EMERGENCY DEPARTMENT. FURTHER EVALUATION AND TREATMENT OF YOUR CONDITION CAN WAIT UNTIL YOU ARE SEEN IN YOUR DOCTORS OFFICE WITHIN THE NEXT 1-2 DAYS. IT IS YOUR RESPONSIBILITY TO MAKE AN APPOINTMENT FOR FOLOW-UP CARE. IF YOU HAVE A PRIMARY DOCTOR --you should call your primary doctor and schedule an appointment IF YOU DO NOT HAVE A PRIMARY DOCTOR YOU CAN CALL OUR PHYSICIAN REFERRAL HOTLINE AT IF YOU CAN NOT AFFORD TO SEE A PHYSICIAN YOU CAN CHOSE FROM THE FOLLOWING [facility] [address] [place] [facility] [address] [place] [facility] [address] [facility] [address] [facility] [address] [facility]. [facility] [address] [facility]. [facility] YOU HAVE RECEIVED A MEDICAL SCREENING EXAM AND THE RESULTS INDICATE THAT YOU DO NOT HAVE A CONDITION THAT REQUIRES URGENT TREATMENT IN THE EMERGENCY DEPARTMENT. FURTHER EVALUATION AND TREATMENT OF YOUR CONDITION CAN WAIT UNTIL YOU ARE SEEN IN YOUR DOCTORS OFFICE WITHIN THE NEXT 1-2 DAYS. IT IS YOUR RESPONSIBILITY TO MAKE AN APPOINTMENT FOR FOLOW-UP CARE. IF YOU HAVE A PRIMARY DOCTOR --you should call your primary doctor and schedule and appointment IF YOU DO NOT HAVE A PRIMARY DOCTOR YOU CAN CALL OUR PHYSICIAN REFERRAL HOTLINE AT . IF YOU CAN NOT AFFORD TO SEE A PHYSICIAN YOU CAN CHOSE FROM THE FOLLOWING [facility]: [facility] [address] [place] [address] [facility] [address] [place] [address] [facility] [address] [place] [address] Additional Instructions: Call your primary care doctor TOMORROW for an appointment during the next 1-2 days.See the doctor sooner or return here if your condition worsens before your appointment time. CONSTANTINE RAYMOND PA-C Jan 16, 2019 01:09
[2019-01-16 01:49] VITALS: BP 101/62; PULSE 98; RESP 18
== END 2019-01-16 01:50 | disposition home or self-care (01) ==
LOC: FTE 23:02
DX: M94.0 Chondrocostal junction syndrome [Tietze] (principal); J40 Bronchitis, not specified as acute or chronic
CPT/HCPCS: 81025; 93005; 96372; 99284; J1100